=== PATIENT | female | born 1985 | race Caucasian/White ===

== ENCOUNTER 2024-02-12 13:59 | Outpatient (AMB) | payer OTHER, SELFPAY ==
--- NOTE | 2024-02-12 14:11 | MHC.PC.OV ---
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 Allergies cefaclor [From Ceclor] Allergy (Unknown, Verified 02/12/24 14:46) Rash Penicillins Allergy (Unknown, Verified 02/12/24 14:12) Rash Medication List - Last Reconciled 02/12/24 by Cinthya Peralta PA-C cholecalciferol (vitamin D3) 50 mcg PO DAILY methimazole 5 mg PO 4XW omega-3 fatty acids-fish oil 300-500 mg (Fish Oil) caps PO Tobacco use date assessed: 02/12/24 Dental Screening Dental Screen Date: 02/12/24 Did you have a dental visit in the last 12 months?: No Did you have a dental problem in the last 6 months where you did not have access to dental care?: Yes Was dental information given to patient?: Patient has dentist HPI [employer]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 She was my patient at [facility] in last seen by myself about 6 months ago. She made this appointment because She states that she feels her heart race for the last week at night. She states that it will last a few minutes in that her has to calm her down and talk her out of it. It started about a week ago. She states it almost felt like when her Graves disease was at it's worse. She states however at that time she was also sweaty, shaky and very anxious because of her thyroid. She had an actual reason about a week and a half ago to be anxious. She states her daughter was in an accident in [place] and her and her to drive in the middle of the night to go get it from the hospital. She states that her daughter was running when she tripped and hit her head on curbing. She had lost consciousness and needed gonsalo in her scalp. She states that she is doing better now that her daughter is home but almost wonders if she is having panic attacks. She states that she keeps thinking of her daughter in the C-spine collar and blood on her face. -she was on propranolol 10 mg twice a day but with the increased heart rate a few nights ago she increased her dosage to 20 mg twice a day. She has been on Wellbutrin for years but does not think that it is effective. She states that overall in her life she does not have many stressors and prior to her thyroid issues did not have any anxiety. She did recently see Dr. Ochoa in her last TSH was 3.86 on 01/23/2024. She is scheduled for labs for 02/23/2024 where they will be assessing the antibodies to see if the Graves disease is in remission. She states that when her TSH came back normal they decided to reduce the methimazole to every other day. She denies any chest pain, syncope, dizziness, shortness a breath, shakiness or nausea. Relationship Advisor: UTD, went last week to [employer] Medical History (Updated 02/12/24 @ 14:39 by Cinthya Peralta PA-C) Generalized anxiety disorder with panic attacks Hyperthyroidism Family History (Updated 02/12/24 @ 14:21 by Lisa Garcia CMA) Father Diabetes Maternal Aunt No problems noted. 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 1. Little interest or pleasure in doing things: not at all 2. Feeling down, depressed, or hopeless: not at all 3. Trouble falling or staying asleep, or sleeping too much: not at all 4. Feeling tired or having little energy: not at all 5. Poor appetite or overeating: not at all 6. Feeling bad about yourself - or that you are a failure or have let yourself or your family down: not at all 7. Trouble concentrating on things, such as reading the newspaper or watching television: not at all 8. Moving or speaking so slowly that other people could have noticed. Or the opposite - being so fidgety or restless that you have been moving around a lot more than usual: not at all 9. Thoughts that you would be better off or of hurting yourself in some way: not at all Total score: 0 Depression Screening Interpretation: Negative Depression Screening Done: Yes 13275 - PHQ-9 Billing: Yes Source: Developed by Drs. Joe Spann, Jolynn Adhikari, Rohit Obrien and colleagues, with an educational tejas from [employer]. Thrive Questionnaire Date Thrive assessed: 02/12/24 I am a: Patient What is your living situation today?: I have a steady place to live Within the past 12 months, did the food you bought not last and you didn't have the money to get more?: Never true Within the past 12 months, did you worry whether your food would run out before you got money to buy more?: Never true Do you have trouble paying for medicines?: No Do you have trouble getting transportation to medical appointments?: No Do you have trouble paying your heating and electricity bill?: No Do you have trouble taking care of your child, family member or friend?: No Do you have trouble with day-to-day activities such as bathing, preparing meals, shopping, managing finances, etc.?: No Are you currently unemployed and looking for a job?: No Are you interested in more education?: No Please select the resources that you would like help with: None Currently or been in a relationship where the following occur: no concerns reported THRIVE Score: 0 AUDIT C Alcohol Use Questionnaire (AUDIT-C) 1. How often do you have a drink containing alcohol?: 2-4 times a month 2. How many drinks containing alcohol do you have on a typical day when you are drinking?: 1 or 2 3. How often do you have six or more drinks on one occasion?: Never Total Score: 2 Score Reviewed/Action Taken: Yes SHARMILA-7 AMB Questionnaire SHARMILA-7 Date SHARMILA - 7 assessed: 02/12/24 Feeling nervous, anxious, or on edge: 1 = Several days Not being able to stop or control worryin = Several days Worrying too much about different things: 0 = Not at all Trouble relaxin = Not at all Being so restless that it is hard to sit still: 0 = Not at all Becoming easily annoyed or irritable: 0 = Not at all Feeling afraid as if something awful might happen: 0 = Not at all Total SHARMILA-7 score (0-4 normal; 5-9 mild; 10-14 moderate; 15-21 severe): 2 Source: Developed by Drs. Joe Spann, Jolynn Adhikari, Rohit Obrien and colleagues, with an educational tejas from [employer]. SHARMILA-7 Assessment Billing SHARMILA-7 Assessment Tool: SHARMILA-7 Assessment 50228 Physical exam (Primary Care) Vital Signs: Last Vital Signs Temp 97.7 F 02/12/24 14:43 Pulse 62 02/12/24 14:43 Resp 12 02/12/24 14:43 BP 106/74 02/12/24 14:43 Pulse Ox 100 02/12/24 14:43 Oxygen Delivery Method Room Air 02/12/24 14:43 BMI result Body Mass Index 26.7 Tobacco/Smoking Status: Tobacco use Status Tobacco use date assessed 02/12/24 02/12/24 14:21 Patient Tobacco Use Status Never used Tobacco 02/12/24 14:21 e-Cigarette/Vaping Use Never Used 02/12/24 14:21 PHQ-9: PHQ-9 Score PHQ-9: Total score 0 02/12/24 14:31 Depression Screening Interpretation: Negative Thrive Assessment: Date of Thrive Assessment Date Thrive assessed 02/12/24 02/12/24 14:21 Currently or been in a relationship where the following occur: no concerns reported Const Orientation/consciousness: patient oriented x3 HENMT Ears: hearing grossly normal bilaterally Neck Thyroid: Thyroid normal Lymphatic: no lymphadenopathy noted Resp Auscultation: clear to auscultation bilaterally Cardio Rate: regular rate Rhythm: regular rhythm Heart sounds: S1 normal heart sound present and S2 normal heart sound present GI Inspection: Yes normal to inspection Palpation (GI): Soft to palpation and Other GI palpation findings present (nontender, no cva tenderness) Auscultation: normoactive bowel sounds Rectal Exam - Female: deferred Skin General skin exam: no rashes or lesions noted Neuro General: patient oriented x3, gait normal and no focal motor deficits Office Procedures EKG 29255-[id number], Complete Assessment and Plan Assessment & Plan (1) Racing heart beat: Code(s): R00.0 - Tachycardia, unspecified Plan: She has felt that the increased dosage of the propranolol has been helpful. We will continue with the 20 mg twice a day. Labs ordered today including CBC, CMP, TSH. We will follow up pending test results. (2) Hyperthyroidism: Code(s): E05.90 - Thyrotoxicosis, unspecified without thyrotoxic crisis or storm Plan: Recently had her methimazole reduced. We will recheck TSH. She does have follow up scheduled next month with Dr. Ochoa. (3) Generalized anxiety disorder with panic attacks: Code(s): F41.1 - Generalized anxiety disorder; F41.0 - Panic disorder [episodic paroxysmal anxiety] Plan: We will discontinue the bupropion. Continue with the propranolol. Short term follow up in 1 month. Sooner if needed. Patient understands and agrees with this plan. Plan She has her mammogram booked in April. Orders: Orders IRON PROFILE Today E05.90 - Thyrotoxicosis, unspecified without thyrotoxic crisis or storm, F41.0 - Panic disorder [episodic paroxysmal anxiety], F41.1 - Generalized anxiety disorder, R00.0 - Tachycardia, unspecified Vitamin B12 and Folate Today E05.90 - Thyrotoxicosis, unspecified without thyrotoxic crisis or storm, F41.0 - Panic disorder [episodic paroxysmal anxiety], F41.1 - Generalized anxiety disorder, R00.0 - Tachycardia, unspecified TSH reflex Free T4 Today E05.90 - Thyrotoxicosis, unspecified without thyrotoxic crisis or storm, F41.0 - Panic disorder [episodic paroxysmal anxiety], F41.1 - Generalized anxiety disorder, R00.0 - Tachycardia, unspecified AMB EKG-In Office Today R00.0 - Tachycardia, unspecified Complete Blood Count Auto Diff Today E05.90 - Thyrotoxicosis, unspecified without thyrotoxic crisis or storm, F41.0 - Panic disorder [episodic paroxysmal anxiety], F41.1 - Generalized anxiety disorder, R00.0 - Tachycardia, unspecified Comprehensive Met. Panel Today E05.90 - Thyrotoxicosis, unspecified without thyrotoxic crisis or storm, F41.0 - Panic disorder [episodic paroxysmal anxiety], F41.1 - Generalized anxiety disorder, R00.0 - Tachycardia, unspecified Medications: New propranolol 20 mg PO BID 90 days 180 tabs 0RF Coding Level of Care Code Est Pt Level 4 (70525) Complex EM visit Add On G2211 Diagnoses Racing heart beat R00.0 Hyperthyroidism E05.90 Generalized anxiety disorder with panic attacks F41.1; F41.0 CPT Codes EKG - CPT: 87261-[id number], Complete ([id number]) Additional Codes SHARMILA-7 Assessment Billing - SHARMILA-7 Assessment Tool: SHARMILA-7 Assessment 16530 ([id number])
[2024-02-12 14:43] VITALS: BP 106/74; PULSE 62; RESP 12; TEMP 36.5; O2SAT 100; BMI 26.7
== END 2024-02-12 14:56 | disposition home or self-care (01) ==
PROVIDERS: PCP Physician Assistant; Visit Provider Physician Assistant
DX: R00.0 Tachycardia, unspecified (principal); E05.90 Thyrotoxicosis, unspecified without thyrotoxic crisis or storm; F41.1 Generalized anxiety disorder; F41.0 Panic disorder [episodic paroxysmal anxiety]
CPT/HCPCS: 93000; 99214; G2211

== ENCOUNTER 2024-02-13 07:23 | Outpatient (REF) | payer OTHER, SELFPAY ==
[2024-02-13 11:42] LABS: MANUAL DIFF FLAG NO
[2024-02-13 11:53] LABS: Basophils Absolute Auto 0.1 X10*3/uL (0.0-0.2); Basophils Percent Auto 0.9 % (0-2); Eosinophils Absolute Auto 0.2 X10*3/uL (0.0-0.4); Hematocrit 40.9 % (37.0-47.0); Hemoglobin 13.7 g/dl (12.0-16.0); Imm Gran Abs Auto 0.01 X10*3/uL (0.00-0.03); Imm Gran Pct Auto 0.2 % (0.0-0.4); Lymphocytes Absolute Auto 2.7 X10*3/uL (1.2-4.9); Lymphocytes Percent Auto 49.4 % (20-40); Mean Corpuscular HGB Conc 33.5 g/dl (31.0-35.0); Mean Corpuscular Hemoglobin 30.2 pg (27.0-33.0); Mean Corpuscular Volume 90.1 fL (80.0-98.0); Mean Platelet Volume 10.7 fL (9.4-12.3); Monocytes Absolute Auto 0.4 X10*3/uL (0.1-1.2); Monocytes Percent Auto 6.7 % (2-11); Neutrophils Absolute Auto 2.2 x10*3/uL (2.0-8.3); Neutrophils Percent Auto 39.8 % (45-73); Platelet Count 218 X10*3/uL (160-400); Red Blood Count 4.54 X10*6/uL (4.20-5.50); Red Cell Distribution Width 13.2 % (11.0-16.0); White Blood Count 5.4 X10*3/uL (4.8-10.8)
[2024-02-13 12:37] LABS: Alanine Aminotransferase 16 U/L (0-31); Albumin Level 4.4 g/dL (3.5-5.0); Alkaline Phosphatase 57 U/L (39-117); Anion Gap 10 (12-20); Aspartate Amino Transferase 15 U/L (5-31); Bilirubin Total 0.7 mg/dL (0.0-1.0); Blood Urea Nitrogen 14 mg/dL (9-16); Calcium 8.7 mg/dL (8.4-10.2); Carbon Dioxide 27 mmol/L (22-29); Chloride 107 mmol/L (96-108); Estimated Glomerular Filt Rate > 60; Glucose Random 85 mg/dL (60-115); Iron 47 mcg/dL (30-160); Percent Iron Saturation 15 % (15-50); Sodium 140 mmol/L (135-145); Total Iron Binding Capacity 304 mcg/dL (228-428); Total Protein 6.9 g/dL (6.5-8.0); Unsaturated Iron Binding 257 ug/dL
[2024-02-13 12:54] LABS: TSH reflex Free T4 0.75 uIU/mL (0.32-4.0)
[2024-02-13 13:05] LABS: Folate 7.9 ng/mL (> or = 4.0); Vitamin B12 349 pg/mL (200-900)
== END 2024-02-13 07:24 | disposition home or self-care (01) ==
LOC: HO.WFDLDS 07:23
PROVIDERS: Visit Provider Physician Assistant
DX: R00.0 Tachycardia, unspecified (principal); E05.90 Thyrotoxicosis, unspecified without thyrotoxic crisis or storm; F41.1 Generalized anxiety disorder; F41.0 Panic disorder [episodic paroxysmal anxiety]
CPT/HCPCS: 36415; 80053; 82607; 82746; 83540; 84443; 85025

== ENCOUNTER 2024-03-11 15:31 | Outpatient (AMB) | payer OTHER, SELFPAY ==
--- NOTE | 2024-03-11 15:34 | A.OFFPC_ITS ---
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 Intake Note: Physical Fruit Coordinator Required: No Is last menstrual period known: Yes Last menstrual period: 03/08/24 Allergies cefaclor [From Ceclor] Allergy (Unknown, Verified 03/11/24 15:37) Rash Penicillins Allergy (Unknown, Verified 02/12/24 14:12) Rash Medication List - Last Reconciled 03/11/24 by Cinthya Peralta PA-C cholecalciferol (vitamin D3) 50 mcg PO DAILY methimazole 5 mg PO 5XW omega-3 fatty acids-fish oil 300-500 mg (Fish Oil) caps PO propranolol 20 mg PO BID 90 days Tobacco use date assessed: 02/12/24 Dental Screening Dental Screen Date: 02/12/24 HPI CPE plus health maintenance HPI Details Patient is a 38-year-old female with a significant past medical history of Graves disease, generalized anxiety who presents today for a cpe. She was my patient at [facility] in last seen by myself about 6 months ago. Endo: At our last visit she did have her TSH rechecked which was WNL. Her antibodies are still positive. 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 She has feeling a lot better. Psych: She is feeling that her anxiety is a lot better since stopping the Wellbutrin. We also increased the propranolol which she feels is very effective. Has not felt lightheaded or dizzy. 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 [facility] Medical History (Updated 02/12/24 @ 14:39 by Cinthya Peralta PA-C) Generalized anxiety disorder with panic attacks Hyperthyroidism Family History (Updated 02/12/24 @ 14:21 by Lisa Garcia CMA) Father Diabetes Maternal Aunt No problems noted. 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 Joe Spann, Jolynn Adhikari, Rohit Obrien and colleagues, with an educational tejas from [employer]. Physical exam (Primary Care) Vital Signs: Last Vital Signs Temp 98.2 F 03/11/24 15:37 Pulse 81 03/11/24 15:37 Resp 14 03/11/24 15:37 BP 108/66 03/11/24 15:37 Pulse Ox 96 03/11/24 15:37 Oxygen Delivery Method Room Air 03/11/24 15:37 BMI result Body Mass Index 27.0 Tobacco/Smoking Status: Tobacco use Status Tobacco use date assessed 02/12/24 03/11/24 15:35 Patient Tobacco Use Status Never used Tobacco 03/11/24 15:35 e-Cigarette/Vaping Use Never Used 03/11/24 15:35 Thrive Assessment: Date of Thrive Assessment Date Thrive assessed 02/12/24 03/11/24 15:35 Const Orientation/consciousness: patient oriented x3 HENMT Ears: hearing grossly normal bilaterally and TM's normal bilaterally General nose exam: No nasal polyps present Face and sinus: Yes sinuses nontender Mouth: Normal oral and palatal mucosa present Eyes Pupils: Equal, round and reactive pupils present EOM: EOMs intact bilaterally Neck Neck: Yes full ROM and Yes no lymphadenopathy Thyroid: Thyroid normal Chest Chest palpation & inspection: normal inspection of the chest Resp Auscultation: clear to auscultation bilaterally Cardio Rate: regular rate Rhythm: regular rhythm Heart sounds: S1 normal heart sound present and S2 normal heart sound present Peripheral pulses: Peripheral pulses 2+ throughout GI Other: Soft, nontender Auscultation: normal bowel sounds Rectal Exam - Female: deferred General: Yes no CVA tenderness Back/Spine/Pelvis Other: Nontender Back: no CVA tenderness Skin General skin exam: no rashes or lesions noted Neuro General: patient oriented x3, gait normal, CN's II-XI intact bilaterally and deep tendon reflexes 2+ bilaterally Cranial nerves: Yes Equal, round and reactive pupils present Motor exam (neuro): 5/5 motor strength present throughout Sensory Exam: double simultaneous stimulation for sensation normal Coordination: [id number] test normal and Romberg test negative Extrem General: Yes normal to inspection and Yes full ROM Psych Affect: normal affect Attitude: cooperative Thought process: Normal thought process present Thought content: Normal thought content present Insight: Good insight present (Psych) Judgement: Good judgement present (Psych) Results Reviewed Results Reviewed: Laboratory Tests 02/13/24 02/13/24 07:29 09:27 WBC 5.4 RBC 4.54 Hgb 13.7 Hct 40.9 Plt Count 218 Sodium 140 Potassium 4.0 Chloride 107 Carbon Dioxide 27 Anion Gap 10 L Creatinine 0.82 Estimated GFR > 60 Random Glucose 85 Calcium 8.7 AST 15 ALT 16 TSH 0.75 Assessment and Plan Assessment & Plan (1) Routine general medical examination at a health care facility: Code(s): Z00.00 - Encounter for general adult medical examination without abnormal findings Plan: reviewed labs reviewed lipids ordered (2) Hyperthyroidism: Code(s): E05.90 - Thyrotoxicosis, unspecified without thyrotoxic crisis or storm Plan: following with endo (3) Generalized anxiety disorder with panic attacks: Code(s): F41.1 - Generalized anxiety disorder; F41.0 - Panic disorder [episodic paroxysmal anxiety] Plan: propranolol is helpful. continue current plan Plan 6 month follow up or sooner prn. Orders: Orders Lipid Panel Today E05.90 - Thyrotoxicosis, unspecified without thyrotoxic crisis or storm, F41.0 - Panic disorder [episodic paroxysmal anxiety], F41.1 - Generalized anxiety disorder Coding Level of Care Code Est Pt Prev Care 18-39y(57437) Diagnoses Routine general medical examination at a health care facility Z00.00 Hyperthyroidism E05.90 Generalized anxiety disorder with panic attacks F41.1; F41.0
[2024-03-11 15:37] VITALS: BP 108/66; PULSE 81; RESP 14; TEMP 36.8; O2SAT 96; BMI 27.0
== END 2024-03-11 16:10 | disposition home or self-care (01) ==
PROVIDERS: PCP Physician Assistant; Visit Provider Physician Assistant
DX: Z00.00 Encounter for general adult medical examination without abnormal findings (principal); E05.90 Thyrotoxicosis, unspecified without thyrotoxic crisis or storm; F41.1 Generalized anxiety disorder; F41.0 Panic disorder [episodic paroxysmal anxiety]
CPT/HCPCS: 99395

== ENCOUNTER 2024-08-25 14:02 | Outpatient (AMB) | payer OTHER, SELFPAY ==
--- NOTE | 2024-08-25 14:08 | MHC.PC.OV ---
Vital Signs 08/25/24 14:09 Height 5 ft 3.23 in Weight 153 lb 6 oz BMI 27.0 BP 98/62 Blood Pressure Location Lt brachial Position Sitting Pulse 57 Pulse Source Pulse Oximeter Pulse Oximetry (%) 97 Oxygen Delivery Method Room Air Intake Visit Reasons: 6 month F/U Intake Note: Follow up Allergies cefaclor [From Ceclor] Allergy (Unknown, Verified 08/25/24 14:08) Rash Penicillins Allergy (Unknown, Verified 08/25/24 14:08) Rash Medication List - Last Reconciled 08/25/24 by Cinthya Peralta PA-C cholecalciferol (vitamin D3) 50 mcg PO DAILY methimazole 5 mg PO 5XW omega-3 fatty acids-fish oil 300-500 mg (Fish Oil) caps PO propranolol 20 mg PO BID 90 days Tobacco use date assessed: 02/12/24 Dental Screening Dental Screen Date: 02/12/24 HPI 6 month F/U HPI Details Patient is a 38-year-old female with a significant past medical history of Graves disease, generalized anxiety who presents today for a follow up Endo: At our last visit she did have her TSH rechecked which was WNL. Her antibodies are still positive. Her bonding agent increased her methimazole to 5 mg. She says that she is frustrated because it feels like her thyroid function fluctuates all the time. She would like a 2nd opinion because she does not like the idea of having to take this medication. She is seeing Dr. Jacob next week for her exophthalmos. Psych: She is feeling that her anxiety is a lot better since stopping the Wellbutrin. We also increased the propranolol which she feels is very effective. Has not felt lightheaded or dizzy. [employer]: UTD, follows with [facility] Mammogram is booked in April. [facility] Medical History (Updated 02/12/24 @ 14:39 by Cinthya Peralta PA-C) Generalized anxiety disorder with panic attacks Hyperthyroidism Family History (Updated 02/12/24 @ 14:21 by Lisa Garcia CMA) Father Diabetes Maternal Aunt No problems noted. 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 1. Little interest or pleasure in doing things: not at all 2. Feeling down, depressed, or hopeless: not at all 3. Trouble falling or staying asleep, or sleeping too much: not at all 4. Feeling tired or having little energy: not at all 5. Poor appetite or overeating: not at all 6. Feeling bad about yourself - or that you are a failure or have let yourself or your family down: not at all 7. Trouble concentrating on things, such as reading the newspaper or watching television: not at all 8. Moving or speaking so slowly that other people could have noticed. Or the opposite - being so fidgety or restless that you have been moving around a lot more than usual: not at all 9. Thoughts that you would be better off or of hurting yourself in some way: not at all Total score: 0 Source: Developed by Drs. Joe Spann, Jolynn Adhikari, Rohit Obrien and colleagues, with an educational tejas from [employer]. Thrive Questionnaire Date Thrive assessed: 02/12/24 I am a: Patient What is your living situation today?: I have a steady place to live Within the past 12 months, did the food you bought not last and you didn't have the money to get more?: Often true Within the past 12 months, did you worry whether your food would run out before you got money to buy more?: Never true Do you have trouble paying for medicines?: No Do you have trouble getting transportation to medical appointments?: No Do you have trouble paying your heating and electricity bill?: No Do you have trouble taking care of your child, family member or friend?: No Do you have trouble with day-to-day activities such as bathing, preparing meals, shopping, managing finances, etc.?: No Are you currently unemployed and looking for a job?: No Are you interested in more education?: No Please select the resources that you would like help with: None Currently or been in a relationship where the following occur: No concerns reported THRIVE Score: 1 AUDIT C Alcohol Use Questionnaire (AUDIT-C) 1. How often do you have a drink containing alcohol?: Monthly or less 2. How many drinks containing alcohol do you have on a typical day when you are drinking?: 3 or 4 3. How often do you have six or more drinks on one occasion?: Never Total Score: 2 SHARMILA-7 AMB Questionnaire SHARMILA-7 Date SHARMILA - 7 assessed: 02/12/24 Feeling nervous, anxious, or on edge: 0 = Not at all Not being able to stop or control worryin = Not at all Worrying too much about different things: 0 = Not at all Trouble relaxin = Not at all Being so restless that it is hard to sit still: 0 = Not at all Becoming easily annoyed or irritable: 0 = Not at all Feeling afraid as if something awful might happen: 0 = Not at all Total SHARMILA-7 score (0-4 normal; 5-9 mild; 10-14 moderate; 15-21 severe): 0 Source: Developed by Drs. Joe Spann, Jolynn Adhikari, Rohit Obrien and colleagues, with an educational tejas from [employer]. Physical exam (Primary Care) Vital Signs: Last Vital Signs Pulse 57 08/25/24 14:09 BP 98/62 08/25/24 14:09 Pulse Ox 97 08/25/24 14:09 Oxygen Delivery Method Room Air 08/25/24 14:09 BMI result Body Mass Index 27.0 Tobacco/Smoking Status: Tobacco use Status Tobacco use date assessed 02/12/24 08/25/24 14:11 Patient Tobacco Use Status Never used Tobacco 08/25/24 14:11 e-Cigarette/Vaping Use Never Used 08/25/24 14:11 PHQ-9: PHQ-9 Score PHQ-9: Total score 0 08/25/24 14:11 Thrive Assessment: Date of Thrive Assessment Date Thrive assessed 02/12/24 08/25/24 14:11 Currently or been in a relationship where the following occur: No concerns reported Const Orientation/consciousness: patient oriented x3 HENMT Ears: hearing grossly normal bilaterally Neck Thyroid: Thyroid normal Lymphatic: no lymphadenopathy noted Resp Auscultation: clear to auscultation bilaterally Cardio Rate: regular rate Rhythm: regular rhythm Heart sounds: S1 normal heart sound present and S2 normal heart sound present GI Inspection: Yes normal to inspection Palpation (GI): Soft to palpation and Other GI palpation findings present (nontender, no cva tenderness) Auscultation: normoactive bowel sounds Rectal Exam - Female: deferred Skin General skin exam: no rashes or lesions noted Neuro General: patient oriented x3, gait normal and no focal motor deficits Results Reviewed Results Reviewed: Laboratory Tests 02/13/24 02/13/24 07:29 09:27 WBC 5.4 RBC 4.54 Hgb 13.7 Hct 40.9 Plt Count 218 AST 15 ALT 16 Alkaline Phosphatase 57 Total Protein 6.9 Albumin 4.4 TSH 0.75 Coding Level of Care Code Est Pt Level 4 (00277) Diagnoses Hyperthyroidism E05.90 Generalized anxiety disorder with panic attacks F41.1; F41.0 Assessment & Plan Assessment & Plan (1) Hyperthyroidism: Code(s): E05.90 - Thyrotoxicosis, unspecified without thyrotoxic crisis or storm Category: Medical Plan: Continue current regimen. Referral to endocrinology at [place]. (2) Generalized anxiety disorder with panic attacks: Code(s): F41.1 - Generalized anxiety disorder; F41.0 - Panic disorder [episodic paroxysmal anxiety] Category: Medical Plan: Continue current regimen Plan Follow up 6 months for a physical exam. Sooner if needed. Orders: Referrals Endocrinology Referral E05.90 - Thyrotoxicosis, unspecified without thyrotoxic crisis or storm
[2024-08-25 14:09] VITALS: BP 98/62; PULSE 57; O2SAT 97; BMI 27.0
== END 2024-08-25 14:30 | disposition home or self-care (01) ==
LOC: HO.HMCFM 14:03
PROVIDERS: PCP Physician Assistant; Visit Provider Physician Assistant
DX: E05.90 Thyrotoxicosis, unspecified without thyrotoxic crisis or storm (principal); F41.1 Generalized anxiety disorder; F41.0 Panic disorder [episodic paroxysmal anxiety]

== ENCOUNTER 2024-10-26 14:48 | Outpatient (AMB) | payer OTHER, SELFPAY ==
--- NOTE | 2024-10-26 14:49 | MHC.OFFVIS ---
Vital Signs 10/26/24 14:50 Height 5 ft 3.23 in Weight 160 lb 14.999 oz BMI 28.3 BP 100/80 Blood Pressure Location Lt brachial Position Sitting Pulse 56 Pulse Source Pulse Oximeter Intake Visit Reasons: Thyrotoxicosis, unspecified without thyrotoxic Intake Note: New patient present today for Thyrotoxicosis, unspecified without thyrotoxic office visit. Science Consultant Required: No Accompanied by: Self / Same As Patient Allergies cefaclor [From [facility]] Allergy (Unknown, Verified 10/26/24 14:54) Rash Penicillins Allergy (Unknown, Verified 10/26/24 14:54) Rash Medication List - Last Reconciled 10/26/24 by Zaina Pyle MD cholecalciferol (vitamin D3) 50 mcg PO DAILY methimazole 5 mg PO 5XW omega-3 fatty acids-fish oil 300-500 mg (Fish Oil) caps PO propranolol 20 mg PO BID 90 days HPI Comments Details: 39-year-old female here today for initial evaluation of hyperthyroidism. Was previously following with Dr. Ochoa at [facility] Last visit was in 2023 Diagnosed with hyperthyroidism January 2022. Was told she has Graves disease at that time. 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 ? Patient denies any difficulty swallowing, pain on swallowing or voice changes or difficulty breathing. LMP 10/20/24 , sexually active with , had vasectomy Patient denies any history of childhood neck radiation. Denies having ever used lithium, amiodarone or biotin supplements. Patient denies any family history of thyroid cancer or thyroid disease. Never smoker Maternal grandmother breast cancer She tested negative for breast cancer genes and ovarian genes Physical exam General: sitting comfortably in no acute distress HEENT: normocephalic/atraumatic, EOM intact, moist oral mucosa Neck: supple, has a goiter, right side larger than left Cardiac: normal heart sounds Pulm: normal breath sounds B/L, no added breath sounds Abd: not distended, no tenderness Extremities: no edema, no signs of myxedema Laboratory Tests 02/13/24 09:27 TSH 0.75 08/12 TSH 2.35 on [facility] portal [facility] Medical History (Updated 10/26/24 @ 15:55 by Zaina Pyle MD) Graves disease Generalized anxiety disorder with panic attacks Hyperthyroidism Surgical History History of eyelid surgery Family History Father Diabetes Maternal Aunt No problems noted. 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 Last TSH July 2024 at 2.35. Discussed with patient that about 30% of the patients have remission after 12-18 months of treatment with methimazole. More recent data has shown longer periods of treatment resulting in better remission rates as well. At this time we will plan to continue treatment with methimazole and continue adjusting the dose as needed. In the long run if she does not have remission, we also briefly discussed definitive therapy options of radioactive iodine ablation and total thyroidectomy and the need for requiring long-term levothyroxine therapy after those procedures. Plan: -continue methimazole 5 mg daily -check TSH, free T4, TSI antibodies -follow up in 6 months The following were discussed as potential side effects of methimazole: - Serious skin rashes - nausea, vomiting, or severe hepatic injury - Agranulocytosis: a rare side effect of methimazole involves a severe decrease in the production of white blood cells. This condition is extremely serious, but affects only one out of every 200 to 500 people who take an antithyroid drug. Agranulocytosis more commonly occurs within the first three months of starting treatment with an antithyroid drug, but can occur at any time. If patient develops a fever (temperature above 100.5F), or other signs or symptoms of infection, she should stop taking the tapazole and immediately have a complete blood count (CBC) done. Serious and potentially life threatening infections, or even , can occur before agranulocytosis resolves. However, once the antithyroid drug is stopped, agranulocytosis usually resolves within a week. - Arthralgias, myalgias - Renal: Nephritis - Fever Patient will stop medication and call our office if these occur. (2) Graves disease: Code(s): E05.00 - Thyrotoxicosis with diffuse goiter without thyrotoxic crisis or storm Category: Medical Plan: See above Plan I spent 45 minutes in reviewing the record, seeing the patient and documenting in the medical record. Orders: Orders Thyroid Stimulating Hormone Today E05.90 - Thyrotoxicosis, unspecified without thyrotoxic crisis or storm Free T4 (Free Thyroxine) Today E05.90 - Thyrotoxicosis, unspecified without thyrotoxic crisis or storm Thyroid Stimulating Immunoglob Today E05.90 - Thyrotoxicosis, unspecified without thyrotoxic crisis or storm Liver Panel Today E05.90 - Thyrotoxicosis, unspecified without thyrotoxic crisis or storm Patient Instructions: The following were discussed as potential side effects of methimazole: - Serious skin rashes - nausea, vomiting, or severe hepatic injury - Agranulocytosis: a rare side effect of methimazole involves a severe decrease in the production of white blood cells. This condition is extremely serious, but affects only one out of every 200 to 500 people who take an antithyroid drug. Agranulocytosis more commonly occurs within the first three months of starting treatment with an antithyroid drug, but can occur at any time. If patient develops a fever (temperature above 100.5F), or other signs or symptoms of infection, she should stop taking the tapazole and immediately have a complete blood count (CBC) done. Serious and potentially life threatening infections, or even , can occur before agranulocytosis resolves. However, once the antithyroid drug is stopped, agranulocytosis usually resolves within a week. - Arthralgias, myalgias - Renal: Nephritis - Fever Patient will stop medication and call our office if these occur. Reduce propranolol to 20 mg daily or 10 mg twice daily Coding Level of Care Code New Pt Level 4 (44052) Diagnoses Hyperthyroidism E05.90 Graves disease E05.00 Time Spent (min) 45
[2024-10-26 14:50] VITALS: BP 100/80; PULSE 56; BMI 28.3
== END 2024-10-26 15:48 | disposition home or self-care (01) ==
PROVIDERS: PCP Physician Assistant; Visit Provider Student in an Organized Health Care Education/Training Program
DX: E05.90 Thyrotoxicosis, unspecified without thyrotoxic crisis or storm (principal); E05.00 Thyrotoxicosis with diffuse goiter without thyrotoxic crisis or storm
CPT/HCPCS: 99204